=== PATIENT | male | born 1935 | race Caucasian/White ===

== ENCOUNTER 2020-12-06 13:12 | Emergency (ER) | payer SELFPAY ==
[~2020-12-06] VITALS: Ht 177.8 cm; Wt 81.8 kg
--- NOTE | 2020-12-06 13:15 | NUR ---
CHARLEY GALVIN FROM [facility] FOR INCREASE IN ASCITES. PARACENTESIS JUST DONE AT [facility] LAST THURSDAY AND 10L FLUID REMOVED. NO INTERVENTIONS DONE BY EMS. PT ARRIVES TO ED A&OX3, POOR HISTORIAN. SWELLING TO ABD AND R LOWER LEG. 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
--- NOTE | 2020-12-06 13:28 | NUR ---
ERP AT NOW.
[2020-12-06 14:07] LABS: BASOPHILS % (AUTO) 1 % (0-1); EOSINOPHILS % (AUTO) 6 % (1-7); LYMPHOCYTES % (AUTO) 9 % (22-44); MEAN CORPUSCULAR HEMOGLOBIN 32.9 pg (27.5-34.5); MEAN CORPUSCULAR HGB CONC 33.9 g/dL (33.2-36.2); MEAN PLATELET VOLUME 8.6 fL (7.4-10.4); MONOCYTES % (AUTO) 12 % (2-9); NEUTROPHILS % (AUTO) 74 % (42-75); PLATELET COUNT 114 x10^3/uL (130-400); RED BLOOD COUNT 2.84 x10^6/uL (4.38-5.82); RED CELL DISTRIBUTION WIDTH 18.2 % (9.4-14.8)
[2020-12-06] MEDS ORDERED: LIDOCAINE 1%, 10ML ONE (14:11)
[2020-12-06 14:17] LABS: ALANINE AMINOTRANSFERASE 19 U/L (12-78); ANION GAP 6 mmol/L (5-15); CALCIUM 8.3 mg/dL (8.5-10.1); CHLORIDE 106 mmol/L (98-107); CREATININE 1.35 mg/dL (0.7-1.3)
[2020-12-06 14:19] LABS: ALKALINE PHOSPHATASE 164 U/L (45-117); BILIRUBIN,TOTAL 0.5 mg/dL (0.2-1.0); TOTAL PROTEIN 6.3 g/dL (6.4-8.2)
--- NOTE | 2020-12-06 14:25 | NUR ---
PT TO PARACENTESIS VIA GURNEY.
--- NOTE | 2020-12-06 15:48 | NUR ---
SON AT BS. RV'WD PLAN WITH PT AND SON. ERP TO COME BACK AND SPEAK WITH SON.
--- NOTE | 2020-12-06 15:51 | NUR ---
ERP AT BS.
--- NOTE | 2020-12-06 16:23 | NUR ---
[employer] O[employer] P[employer]IAT[facility] CARE RN IN TO SPEAK WITH PT AND SON.
[2020-12-06 17:00] VITALS: BP 105/69
--- NOTE | 2020-12-06 17:12 | NUR ---
ATTEMPTED TO TRANSPORT PT BACK TO THE [facility]IA [facility] [employer]. BUT WHEN TRANSFERRING PT FROM [facility] IN ROOM INTO WHEELCHAIR, PT "GOT SCARED" PER SON, HAD NEAR-SYNCOPAL EPISODE, SPO2 DROPPED TO 70s, PT BECAME PALE BUT STILL RESPONSIVE. O2 APPLIED AT 4L NC AND SPO2 INCREASED TO 98%. PT STABILIZED AND TRANSFERRED BACK TO [facility] IN ER ROOM. ERP NOTIFIED. THROUGHPUT RN TO ARRANGE [facility] TRANSPORT BACK TO THE [facility]. SON REMAINS AT PT'S BS.
--- NOTE | 2020-12-06 17:13 | NUR ---
ERP WAS BACK IN ROOM TO SPEAK TO PT AND SON.
--- NOTE | 2020-12-06 17:49 | NUR ---
[facility] TO PICK PT UP AT 1930. OFFERED PT DINNER TRAY BUT HE REFUSED. SON CRISTOPHER MOCTEZUMA, WILL MEET PT AT [facility]. Addendum: 12/06/20 at 1801 by JOSE CALLED PT'S SON TO LET HIM KNOW PT TO BE TRANSPORTED AT 0.
--- NOTE | 2020-12-06 18:43 | NUR ---
[facility] HERE TO TRANSPORT PT BACK TO [facility]. Addendum: 12/06/20 at 1852 by MESFINON CALLED PT'S ALLYSSA NICHOLAS TO LET HIM KNOW PT WAS TRANSPORTED BACK TO [facility] WITH [facility].
== END 2020-12-06 18:46 ==
LOC: ED 16:21
DX: R18.8 Other ascites (principal); R10.84 Generalized abdominal pain
CPT/HCPCS: 36415; 49083; 80053; 85025; 99285; J3490